=== PATIENT | male | born 1995 ===

== ENCOUNTER 2024-04-21 21:49 | Emergency (ER) | payer OTHER ==
[~2024-04-21] VITALS: Ht 180.3 cm; Wt 73.6 kg
[2024-04-21 21:59] VITALS: BP 107/76; PULSE 112; RESP 16; TEMP 97.8; O2SAT 96
[2024-04-22] MEDS: MORPHINE SULFATE 2 MG/ML SYRINGE IVP ONE (00:14)
[2024-04-22 00:16] LABS: BASOPHILS % (AUTO) 0.4 % (0.0-2.0); EOSINOPHILS % (AUTO) 0.3 % (1.0-6.0); HEMATOCRIT 45.2 % (41-53); HEMOGLOBIN 15.3 g/dL (13.5-17.5); LYMPHOCYTES # (AUTO) 1.6 K/uL (1.0-4.8); LYMPHOCYTES % (AUTO) 11.9 % (22.0-44.0); MEAN CORPUSCULAR HEMOGLOBIN 31.6 pg (26.0-34.0); MEAN CORPUSCULAR HGB CONC 33.8 G/dL (31.0-37.0); MEAN CORPUSCULAR VOLUME 94 fL (80-100); MONOCYTES # (AUTO) 1.2 K/uL (0.1-1.0); MONOCYTES % (AUTO) 8.6 % (2.0-9.0); NEUTROPHILS # (AUTO) 10.6 K/uL (1.8-7.7); NEUTROPHILS % (AUTO) 78.8 % (40.0-70.0); PLATELET COUNT (AUTO) 233 K/uL (150-450); RED BLOOD CELL COUNT(AUTO) 4.83 MIL/uL (4.50-5.90); RED CELL DISTRIBUTION WIDTH 12.9 % (11.5-14.5); WHITE BLOOD COUNT (AUTO) 13.4 K/uL (4.5-11.0)
[2024-04-22 00:17] LABS: ANION GAP 2 mmol/L (8-16); CALCIUM, TOTAL 8.8 mg/dL (8.8-10.5); CARBON DIOXIDE 34 mmol/L (22-29); CHLORIDE 104 mmol/L (98-107); CREATININE 0.93 mg/dL (0.60-1.30); GLOMERULAR FILTR. RATE CALC > 60 mL/min (>60); GLUCOSE,RANDOM 97 mg/dL (70-110); POTASSIUM 3.6 mmol/L (3.5-5.1); SODIUM SERUM 140 mmol/L (136-145); UREA NITROGEN, BLOOD 9 mg/dL (7-18)
[2024-04-22 00:21] LABS: ALANINE AMINOTRANSFERASE 65 U/L (12-78); ALBUMIN 3.5 g/dL (3.4-5.0); ALKALINE PHOSPHATASE 79 U/L (46-116); ASPARTATE AMINOTRANSFERASE 33 U/L (15-37); BILIRUBIN,TOTAL 0.9 mg/dL (0.1-1.0); LIPASE 22 U/L (16-77)
[2024-04-22] MEDS ORDERED: SODIUM CHLORIDE 0.9% 100 ML ONE (00:29)
[2024-04-22] MEDS ORDERED: IOHEXOL 350 MG/ML 100 ML VIAL ONE (00:30)
[2024-04-22] MEDS: SODIUM CHLORIDE 0.9% 1,000 ML IV ONE (01:28)
[2024-04-22] MEDS: MINERAL OIL 133 ML ENEMA PR ONE (02:29)
[2024-04-22] MEDS: DOCUSATE SODIUM 100 MG CAPSULE PO ONE (02:29)
[2024-04-22] MEDS ORDERED: DOCU-385 PO (02:49)
[2024-04-22] MEDS: MAGNESIUM CITRATE [LEMON] 300 ML ORAL SOLUTION PO ONE (02:57)
== END 2024-04-22 03:31 | disposition home or self-care (01) ==
LOC: EMS 21:49
DX: K59.00 Constipation, unspecified (principal)
CPT/HCPCS: 99285; 80048; 80076; 83690; 85025; 36415; 74177; 96374; 96361; Q9967; J7030; J7050

== ENCOUNTER 2024-11-12 19:30 | Emergency (ER) | payer OTHER ==
[~2024-11-12] VITALS: Ht 177.8 cm; Wt 72.7 kg
[~2024-11-12 19:30] MED LIST: DOCU-385 PO
[2024-11-12 22:13] VITALS: BP 118/71; PULSE 78; RESP 18; TEMP 98.605328; O2SAT 99
[2024-11-13] MEDS ORDERED: TRAM50TA5 PO (01:12)
== END 2024-11-13 01:56 | disposition home or self-care (01) ==
LOC: EMS 19:44
DX: S83.8X2A Sprain of other specified parts of left knee, initial encounter (principal); Z79.899 Other long term (current) drug therapy; W21.02XA Struck by soccer ball, initial encounter; Y93.89 Activity, other specified; Y92.89 Other specified places as the place of occurrence of the external cause; Y99.8 Other external cause status
CPT/HCPCS: 29505; 99283